=== PATIENT | female | born 1970 | race Caucasian/White ===

== ENCOUNTER → 2018-01-11 | Day surgery (SDC) | payer OTHER ==
[~2018-01-11] MED LIST: ACETAMINOPHEN 1000 MG/100 ML IV ONE; ALPRAZOLAM1 MG PO; BUPIVACAINE HCL 0.5% INJ 30 ML VIAL INJ ONE; CEFAZOLIN SOD 2 GM/D5W 50ML 50 ML IV ONE; DEXAMETHASONE SOD PHOS INJ 4 MG/ML VIAL ONE; FENTANYL CITRATE/PF 100MCG/2 ML INJ ONE; LIDOCAINE HCL 2% LOCAL INJ 5 ML SDV VIAL INJ ONE; MIDAZOLAM HCL 2 MG/2 ML VIAL ONE; NEOSTIGMINE 1 MG/ML 10ML VIAL ONE; ONDANSETRON HCL INJ 2 MG/ML VIAL ONE; PROPOFOL IV EMULSION 10 MG/ML 20 ML VIAL ONE; SCOPOLAMINE 1.5 MG PATCH ONE; SEVOFLURANE INHAL SOLN 250 ML PEN BTL ONE
[2018-01-11 14:55] VITALS: BP 117/56
--- NOTE | 2018-01-12 16:48 | Operative Report ---
DATE OF PROCEDURE: January 11, 2018 MAMMOGRAPHY TECHNICIAN: None. PREOPERATIVE DIAGNOSES 1. Right foot tarsal tunnel syndrome. 2. Right foot tibial nerve entrapment. 3. Right foot medial plantar nerve entrapment. 4. Right foot lateral plantar nerve entrapment. 5. Right foot calcaneal nerve entrapment. 6. Right foot plantar fascitis. 7. Ankle calcaneal spur, right foot. POSTOPERATIVE DIAGNOSES 1. Right foot metatarsal tunnel syndrome. 2. Right foot tibial nerve entrapment. 3. Right foot medial plantar nerve entrapment. 4. Right foot lateral plantar nerve entrapment. 5. Right foot calcaneal nerve entrapment. 6. Right foot plantar fascitis. 7. Ankle calcaneal spur, right foot. PROCEDURES 1. Right foot tarsal tunnel release. 2. Right foot tibial nerve neurolysis. 3. Right foot medial plantar nerve neurolysis. 4. Right foot lateral plantar nerve neurolysis. 5. Right foot calcaneal nerve neurolysis. 6. Right foot plantar fasciotomy. 7. Right foot resection of calcaneal spur. 8. Application of splint. 9. Right tibial nerve block. 10. Use of intraoperative fluoroscopy. INJECTABLES: 20 mL of 0.5% Marcaine plain and 1 mL of 40 mg of Decadron. DETAILS OF PROCEDURE: After informed consent was obtained, the patient was brought to the operating room and placed on the operating table in the supine position. General anesthesia was obtained. A pneumatic thigh tourniquet was applied to the right thigh. The right lower extremity was scrubbed, prepped and draped in the usual aseptic manner. Attention was then directed to the right ankle where a linear incision was made along the gosia pedis. The incision was deepened down utilizing sharp resection technique. All vital structures were identified and retracted as necessary. All bleeders were identified, ligated and cauterized as necessary. Next, the inferior extensor of right ankle was visualized and resected longitudinally. At this time, the tibial nerve was visualized. All entrapments were resected utilizing sharp dissection technique. Next, the tibial nerve was followed down where it bifurcated into the medial plantar nerve and lateral plantar nerve. All the entrapments were resected and removed from the surgical site utilizing sharp dissection technique. Next, the calcaneal nerve was visualized and all the entrapments were resected and removed from the surgical site utilizing sharp and blunt dissection technique. The wound was irrigated with copious amounts of saline. Next, the was performed and the medial band of the plantar fascia was visualized. Next, utilizing a #15 blade, the medial band of the plantar fascia was transected at the level of the calcaneal insertion. Next, utilizing a reciprocating rasp the infracalcaneal spur was visualized and resected in total utilizing . The wounds were then irrigated with a copious amounts of saline. The wounds were then coapted utilizing 3-0 Vicryl and 4-0 nylon. The surgical site was then injected with 10 mL of 0.5% Marcaine plain with 1 mL of 41 grams of Decadron followed by an additional 10 mL of 0.5% Marcaine plain placed along the tibial nerve. The right foot was then placed in a dry sterile dressing consisting of Xeroform, 4 x 4, Kerlix and Sumanth wrap. The right foot was then placed into a pressure splint consisting of 4-inch and 6-inch Webril, 4 x 30 splint, and a 4-inch and a 6-inch sheath. The patient tolerated the procedure and anesthesia well. The patient was transferred back to the recovery room with vital signs stable and neurovascular status intact to preop status. Job#: [id number]
== END | disposition home or self-care (01) ==
LOC: OR 10:39
PROVIDERS: ATTEND Podiatrist Foot & Ankle Surgery
DX: G57.51 Tarsal tunnel syndrome, right lower limb (principal); G58.8 Other specified mononeuropathies; M72.2 Plantar fascial fibromatosis; M77.31 Calcaneal spur, right foot; M79.671 Pain in right foot; Z88.6 Allergy status to analgesic agent; Z88.5 Allergy status to narcotic agent; Z88.2 Allergy status to sulfonamides; Z88.8 Allergy status to other drugs, medicaments and biological substances; F41.9 Anxiety disorder, unspecified
CPT/HCPCS: 28035 ×2; 28119; 64704; 64726; 93005; J1100; J2001; J2250; J2405; Q4150; J2710

== ENCOUNTER → 2020-09-26 | Day surgery (SDC) | payer OTHER ==
[2020-09-24 10:57] LABS: BASOPHILS # (AUTO) 0.1 (0.0-0.1); EOSINOPHILS # (AUTO) 0.3 (0.0-0.4); HEMOGLOBIN 16.2 g/dL (12.0-16.0); LYMPHOCYTES # (AUTO) 2.4 (1.0-3.2); LYMPHOCYTES % 25.4 % (18.0-39.1); MEAN CORPUSCULAR HEMOGLOBIN 30.8 pg (28-32); MEAN CORPUSCULAR HGB CONC 33.8 g/dL (31-35); MEAN CORPUSCULAR VOLUME 91.3 fL (81-99); MONOCYTES # (AUTO) 0.8 (0.2-0.8); MONOCYTES % 8.5 % (4.4-11.3); NEUTROPHILS # (AUTO) 5.7 (2.1-6.9); NEUTROPHILS % 61.5 % (38.7-80.0); PLATELET COUNT 357 x10e3/uL (140-360); RED BLOOD COUNT 5.26 x10e6/uL (3.6-5.1); RED CELL DISTRIBUTION WIDTH 12.6 % (11.7-14.4)
[2020-09-24 11:15] LABS: ALBUMIN 3.5 g/dL (3.5-5.0); ALBUMIN/GLOBULIN RATIO 0.9 (0.8-2.0); ANION GAP 14.2 mmol/L (8-16); CALCIUM 9.1 mg/dL (8.4-10.2); CREATININE, SERUM 1.07 mg/dL (0.57-1.11); POTASSIUM 4.2 mmol/L (3.5-5.1)
[~2020-09-26] MED LIST changes: +ACETAMINOPHEN 1000 MG/100 ML 100 ML IV ONE; -ACETAMINOPHEN 1000 MG/100 ML IV ONE; +BUPIVACAINE 0.5%/EPI 30 ML SDV INJ ONE; -BUPIVACAINE HCL 0.5% INJ 30 ML VIAL INJ ONE; -CEFAZOLIN SOD 2 GM/D5W 50ML 50 ML IV ONE; +CYCLOBENZAPRINE5 MG PO; +FAMOTIDINE 20 MG/2 ML VIAL IV ONE; -NEOSTIGMINE 1 MG/ML 10ML VIAL ONE; +NP THYROID60 MG PO; -ONDANSETRON HCL INJ 2 MG/ML VIAL ONE; +ONDANSETRON HCL INJ 2MG/ML 2ML 2 MG/ML VIAL ONE; +POVIDONE IODINE 0.05% 0.05 % ML PO ONE; +PROGESTERONE200 MG PO; -SCOPOLAMINE 1.5 MG PATCH ONE
[2020-09-26 14:05] VITALS: BP 118/61
== END | disposition home or self-care (01) ==
LOC: OR 07:25
PROVIDERS: ATTEND Surgery
DX: D17.79 Benign lipomatous neoplasm of other sites (principal); I45.10 Unspecified right bundle-branch block; M06.9 Rheumatoid arthritis, unspecified; M19.90 Unspecified osteoarthritis, unspecified site; E03.9 Hypothyroidism, unspecified; E66.9 Obesity, unspecified; F41.9 Anxiety disorder, unspecified; Z88.6 Allergy status to analgesic agent; Z88.2 Allergy status to sulfonamides; Z88.8 Allergy status to other drugs, medicaments and biological substances; Z01.810 Encounter for preprocedural cardiovascular examination; Z01.812 Encounter for preprocedural laboratory examination; Z20.822 Contact with and (suspected) exposure to COVID-19
CPT/HCPCS: 27043; 36415; 80053; 85025; 88304; 93005; J0131; J1100; J2001; J2250; J2405; J2704; J3010; U0002